=== PATIENT | female | born 1970 | race Caucasian/White ===

== ENCOUNTER 2020-06-23 16:03 | Emergency (ER) | payer MEDICARE ==
[~2020-06-23 16:03] MED LIST: BACTRIM DS TAB1 EACH PO; CLARITIN10 MG PO; ETODOLAC500 MG PO; FLONASE ALLER15.8 ML; LASIX20 MG PO; PYRIDIUM100 MG PO; UROCIT-K10 MEQ PO; VOLTAREN **OUT75 MG PO; ZANAFLEX4 MG PO
[2020-06-23 17:06] LABS: BASOPHIL 0.7 % (0-2); EOSINOPHIL 5.1 % (0-5); HGB 10.7 g/dl (12.5-16.0); LYMPHOCYTE 24.3 % (15-48); MCH 25.1 pg (25.0-31.0); MCHC 31.5 g/dL (32.0-36.0); MCV 79.8 fL (78.0-100.0); MONOCYTE 7.1 % (0-12); MPV 10.1 fL (6.0-9.5); NEUTROPHIL 62.6 % (41-80); NRBC 0; PLT 388 K/uL (150-400); RBC 4.26 M/uL (4.20-5.40); RDW 14.6 % (11.5-14.0); WBC 6.1 K/uL (4.0-10.5)
[2020-06-23 17:25] LABS: BUN/CREAT RATIO (CALC) 10.5 RATIO; CREATININE 0.95 mg/dL (0.51-0.95); POTASSIUM 4.2 mmol/L (3.5-5.1)
[2020-06-23 18:07] LABS: BILIRUBIN NEGATIVE (NEGATIVE); BLOOD NEGATIVE Ery/uL (NEGATIVE); CLARITY CLEAR (CLEAR); COLOR YELLOW (YELLOW); GLUCOSE (U) NORMAL (NORMAL); LEUKOCYTES NEGATIVE Leu/uL (NEGATIVE); NITRITE NEGATIVE (NEGATIVE); PROTEIN NEGATIVE (NEGATIVE)
[2020-06-23 18:09] LABS: AMPHETAMINES NEGATIVE (NEGATIVE); BARBITURATES NEGATIVE (NEGATIVE); ECSTASY (MDMA) NEGATIVE (NEGATIVE); MARIJUANA (THC) NEGATIVE (NEGATIVE); METHADONE NEGATIVE (NEGATIVE); OPIATES NEGATIVE (NEGATIVE); OXYCODONE NEGATIVE (NEGATIVE)
== END 2020-06-23 18:45 | disposition home or self-care (01) ==
LOC: FER 16:03
PROVIDERS: Nurse Practitioner Family
DX: S82.62XA Displaced fracture of lateral malleolus of left fibula, initial encounter for closed fracture (principal); Z88.8 Allergy status to other drugs, medicaments and biological substances; W19.XXXA Unspecified fall, initial encounter; Z91.81 History of falling
CPT/HCPCS: 36415; 73610; 80048; 80305; 81003; 85025; 93005

== ENCOUNTER 2020-11-02 05:32 | Emergency (ER) | payer MEDICARE ==
[2020-11-02] MEDS ORDERED: PERCOCET 5-3251 EACH PO (08:40)
[2020-11-02] MEDS ORDERED: IBUPROFEN800 MG PO (08:40)
[2020-11-02] MEDS ORDERED: ONDANSETRON ODT4 MG SL (08:40)
[2020-11-28] MEDS ORDERED: PROZAC20 MG PO (08:43)
[2020-11-30] MEDS ORDERED: PERCOCET 5-3251 EACH PO (08:08)
== END 2020-11-02 09:05 | disposition home or self-care (01) ==
LOC: FER 05:32
DX: S52.521A Torus fracture of lower end of right radius, initial encounter for closed fracture (principal); Z88.8 Allergy status to other drugs, medicaments and biological substances; W01.0XXA Fall on same level from slipping, tripping and stumbling without subsequent striking against object, initial encounter; Y93.89 Activity, other specified; Y92.488 Other paved roadways as the place of occurrence of the external cause
CPT/HCPCS: 73110; 96372; J1170; J1885

== ENCOUNTER → 2020-11-30 | Day surgery (SDC) | payer MEDICARE ==
[~2020-11-30] VITALS: Ht 167.6 cm; Wt 108.9 kg
[~2020-11-30] MED LIST changes: +IBUPROFEN800 MG PO; +NORCO 5-325 TA1 EACH PO; +ONDANSETRON ODT4 MG SL; +PERCOCET 5-3251 EACH PO; +PROZAC20 MG PO
[2020-11-30 07:15] LABS: HCG (URINE) SCREEN NEGATIVE (NEGATIVE)
[2020-11-30 07:43] LABS: HGB 9.7 g/dl (12.5-16.0); MCH 23.5 pg (25.0-31.0); MCHC 30.3 g/dL (32.0-36.0); MCV 77.7 fL (78.0-100.0); MPV 10.1 fL (6.0-9.5); RBC 4.12 M/uL (4.20-5.40); RDW 16.7 % (11.5-14.0); WBC 7.3 K/uL (4.0-10.5)
[2020-11-30 08:04] LABS: ALBUMIN 3.4 g/dL (3.4-5.0); BILIRUBIN - TOTAL 0.4 mg/dL (0.2-1.0); BUN/CREAT RATIO (CALC) 26.9 RATIO; CREATININE 0.67 mg/dL (0.51-0.95); GLOBULIN (CALCULATION) 3.7 g/dL; POTASSIUM 4.4 mmol/L (3.5-5.1); TOTAL PROTEIN 7.1 g/dL (6.4-8.2)
== END | disposition home or self-care (01) ==
LOC: FAS 06:28
PROVIDERS: Orthopaedic Surgery
DX: S52.571A Other intraarticular fracture of lower end of right radius, initial encounter for closed fracture (principal)
CPT/HCPCS: 36415; 71045; 73100; 76000; 80053; 84703; 93005; C1713; C1769; J0690; J1100; J1170; J2250; J2795; J3010; J7120

== ENCOUNTER 2020-12-10 16:36 | Emergency (ER) | payer MEDICARE ==
[~2020-12-10 16:36] MED LIST changes: -NORCO 5-325 TA1 EACH PO
[2020-12-10] MEDS ORDERED: NORCO 5-325 TA1 EACH PO (18:14)
== END 2020-12-10 18:38 | disposition home or self-care (01) ==
LOC: FER 16:36
DX: S93.601A Unspecified sprain of right foot, initial encounter (principal); S90.31XA Contusion of right foot, initial encounter; Z88.2 Allergy status to sulfonamides; X50.1XXA Overexertion from prolonged static or awkward postures, initial encounter; Y93.01 Activity, walking, marching and hiking; Y92.009 Unspecified place in unspecified non-institutional (private) residence as the place of occurrence of the external cause
CPT/HCPCS: 73630